=== PATIENT | male | born 2000 | race Caucasian/White ===

== ENCOUNTER 2020-01-07 05:25 | Day surgery (SDC) | payer OTHER ==
[~2020-01-07 05:25] MED LIST: CEFAZOLIN 2 GM/D5W RTU 2 GM/50 ML RTUPB IV ONE; CEFAZOLIN 2 GM/D5W RTU 2 GM/50 ML RTUPB IV PRN; RINGERS SOLUTION,LACTATED 1,000 ML IV PRN
[2020-01-07] MEDS ORDERED: LIDOCAINE 0.5% INJ-PF (5 MG/ML) 50 ML SDV ONE (06:19)
[2020-01-07] MEDS ORDERED: ONDANSETRON HCL INJ/PF 4 MG/2 ML SDV ONE (06:21)
[2020-01-07] MEDS ORDERED: PROPOFOL INJ 200 MG/20 ML VIAL IV ONE (06:21)
[2020-01-07] MEDS ORDERED: MIDAZOLAM 2 MG/2 ML INJ ONE (06:21)
[2020-01-07] MEDS ORDERED: DEXAMETHASONE SOD PHOSPHATE INJ 4 MG/1 ML VIAL ONE (06:21)
[2020-01-07] MEDS ORDERED: SUGAMMADEX SODIUM 200 MG/2 ML SDV IV ONE (06:21)
[2020-01-07] MEDS ORDERED: FENTANYL CITRATE INJ/PF 100 MCG/2 ML AMPUL ONE (06:21)
[2020-01-07] MEDS ORDERED: ROPIVACAINE HCL 0.5% INJ/PF (5 MG/1 ML) 30 ML SDV ONE (06:55)
[2020-01-07] MEDS ORDERED: ONDANSETRON HCL INJ/PF 4 MG/2 ML SDV IV PRN (08:19)
[2020-01-07] MEDS ORDERED: MEPERIDINE HCL/PF INJ 25 MG/1 ML DISP.SYRIN IV PRN (08:19)
[2020-01-07] MEDS ORDERED: FENTANYL CITRATE INJ/PF 100 MCG/2 ML AMPUL IV PRN ×3 (08:19)
[2020-01-07] MEDS ORDERED: MORPHINE SULFATE 10 MG/ML INJ IV PRN (08:19)
[2020-01-07] MEDS ORDERED: DIPHENHYDRAMINE HCL 50 MG/ML VIAL IV PRN (08:19)
[2020-01-07] MEDS ORDERED: PROMETHAZINE HCL INJ 25 MG/1 ML VIAL IV PRN ×2 (08:19)
--- NOTE | 2020-01-07 09:21 | Operative Report ---
Operative Report DATE OF SURGERY: 01/07/20 Operative Report: The patient was seen by me in the preoperative holding area and his operative extremity was marked with an indelible pen. CV a regional anesthesia block from the anesthesiology staff and was taken to the operating room placed supine on the operating room table and intubated. Repositioned in the lateral decubitus position and all of his bony prominences were padded including an axillary roll. Patient was examined under anesthesia, his shoulder was not dislocatable, and did not sublux on manipulation. No significant laxity was noted. Was prepped and draped in the normal sterile orthopedic fashion and a timeout for safety was taken which were identify the correct patient, the correct side, the correct procedure and that we had all necessary equipment. Is also verified that he received weight-based Ancef prior to incision. After all parties agreed we then proceeded with the case. I made a standard posterior working portal with a 15 blade and entered the joint without any apparent complication. I began the diagnostic arthroscopy and localized an anterior working portal with a spinal needle. The switching stick was inserted and an Arthrex cannula was placed anteriorly. I began my diagnostic arthroscopy with the aid of a probe and found a type II SLAP tear. There was involvement of the bicipital anchor. There was marked synovitis of the intra-articular portion of the long head of the biceps as well as the surrounding synovium. Using arthroscopic scissors a biceps tenotomy was performed. Utilized the sucker shaver and arthroscopic wand to gently debride the SLAP tear and surrounding synovitis. Of the diagnostic arthroscopy noted intact cartilage on the humeral head without any significant chondromalacia likewise there was intact cartilage without any focal chondromalacia of the glenoid. Was some mild fraying of the anterior inferior and posterior labrum. This was probed and found to be superficial in nature. I switched cannulas to placed the camera in the front to get a better view of the back of the shoulder and found the posterior labrum to be mildly frayed in a superficial manner but not frankly torn. I switched the camera back posteriorly and inspected the rotator cuff noting no focal areas of tear but there was some noted synovitis and tendinitis. This concluded the intra-articular portion of the case all instruments were withdrawn. I then made a standard incision for a biceps tenodesis in the axillary fold centered over the crossing pectoralis major tendon. The skin was incised sharply with a 15 blade the subcutaneous tissue was divided with Bovie electrocautery and Metzenbaum scissors. Retractors were placed and I was able to palpate the long head of the biceps tendon. The tendon was retrieved out of the incision and was noted to be markedly synovitic. Lysing a fiber loop stitch the tendon was whipstitched beginning at the musculotendinous junction and proceeding 2 cm proximally. A locking construct was made. The rest of the tendon was removed. I then noted the terminal end of the bicipital groove at the level of the crossing pectoralis major tendon. I utilized a curette to freshen the anterior surface of the humerus and placed a drill pin intraosseously through the near cortex. The FiberWire was passed back through the tendon created a locking construct after it was loaded onto the bicipital button. The biceps button was then introduced intraosseously the sutures were tensioned and the long head of the biceps tendon was brought down onto the anterior face of the humerus. It was secured with a surgeon's knot and alternating half hitches. The tails were cut and the wound was copiously irrigated with sterile saline. The subcutaneous tissue was then closed with interrupted 2-0 Monocryl the skin was closed with interrupted horizontal mattress 3-0 nylon's and the portal stitches were closed with a combination of 2-0 Monocryl and 3-0 nylon stitches. Sterile dressings were placed. The patient was placed into an immobilizer with a Cryo/Cuff. He woke from general anesthesia without any apparent complication and was transferred to the PACU where he will remain until he meets the criteria for same-day discharge. PREOPERATIVE DIAGNOSIS: Left shoulder SLAP tear POSTOPERATIVE DIAGNOSIS: Same OPERATION: Left shoulder arthroscopy, open subpectoral biceps tenodesis SURGEON: PAUL LIMON 1ST [employer] SERVICE AND SETTER: MARCY ROYAL ANESTHESIA: GA - General anesthesia with a regional block TISSUE REMOVED OR ALTERED: Open subpectoral biceps tenodesis COMPLICATIONS: None QUANTITATIVE BLOOD LOSS: 5 INTRAOPERATIVE FINDINGS: Operative note PROCEDURE: Left shoulder arthroscopy, open subpectoral biceps tenodesis.
[2020-01-07] MEDS ORDERED: OXYCODONE-ACETAMINOPHEN 5-325 MG TABLET ONE (10:14)
[2020-01-07] MEDS ORDERED: OXYCODONE-ACETAMINOPHEN 5-325 MG TABLET PO ONE (11:00)
[2020-01-07 11:30] VITALS: BP 115/82
[2020-01-07] MEDS ORDERED: SUCCINYLCHOLINE CHLORIDE INJ 200 MG/10 ML VIAL ONE (13:48)
== END 2020-01-07 11:25 | disposition home or self-care (01) ==
LOC: OROUT 05:25
PROVIDERS: ATTEND Orthopaedic Surgery
DX: S43.432A Superior glenoid labrum lesion of left shoulder, initial encounter (principal); X58.XXXA Exposure to other specified factors, initial encounter; M75.22 Bicipital tendinitis, left shoulder; Z03.818 Encounter for observation for suspected exposure to other biological agents ruled out
CPT/HCPCS: 29807; 23430; 87635; 64415; 76942; 01630; L3650; C1713; J2795; J2250; J1100; J3010; J3490; J0330; J2405; J2704; J0690; C9803; 1630